=== PATIENT | female | born 1995 | race Caucasian/White ===

== ENCOUNTER 2018-03-25 16:48 | Emergency (ER) | payer OTHER ==
[2018-03-25] MEDS ORDERED: Tetracaine HCl/PF 0.5% 4 ML Bottle EYELF ONE (18:40)
--- NOTE | 2018-03-25 18:46 | EDM.PDOC ---
ED HPI GENERAL MEDICAL PROBLEM - General Chief Complaint: Eye Problems Stated Complaint: PAIN IN LEFT EYE Time Seen by Provider: 03/25/18 18:30 Source of Information: Reports: Patient, RN History Limitations: Reports: No Limitations - History of Present Illness INITIAL COMMENTS - FREE TEXT/NARRATIVE: 23 yo female presents with about 20 hrs of L eye irritation, redness, and watering. Says her tetanus is UTD. 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) Left Eye Pain Score (Numeric/FACES): 4 - Related Data Allergies Allergy/AdvReac Type Severity Reaction Status Date / Time No Known Allergies Allergy Verified 03/25/18 17:26 Home Meds: Home Meds NK [No Known Home Meds] 03/25/18 [History] Past Medical History - Past Health History Medical/Surgical History: Denies Medical/Surgical History Social & Family History - Tobacco Use Smoking Status *Q: Current Every Day Smoker Years of Tobacco use: 6 Packs/Tins Daily: 0.5 - Recreational Drug Use Recreational Drug Use: No ED ROS GENERAL - Review of Systems Review Of Systems: See Below Constitutional: Reports: No Symptoms HEENT: Reports: Eye Pain (left) Respiratory: Reports: No Symptoms GI/Abdominal: Reports: No Symptoms Skin: Reports: No Symptoms Neurological: Reports: No Symptoms ED EXAM GENERAL W FULL EYE - Physical Exam Exam: See Below Exam Limited By: No Limitations General Appearance: Alert, WD/WN, No Apparent Distress Eye Exam: Left Eye: Conjunctival Injection, Foreign Body (Over cornea, ? rust ring), Bilateral Eye: PERRL Eyelids: Bilateral: Normal Appearance Conjunctiva & Sclera: Left: Injected Cornea Exam: Left: Foreign Body Extraocular Movements: Bilateral: Intact Pupils: Normal Accommodation Pupillary Size: Bilateral: 3 mm Anterior Chamber: Bilateral: Normal Appearance Ears: Hearing Grossly Normal Nose: Normal Inspection, Normal Mucosa, No Blood Throat/Mouth: Normal Voice, No Airway Compromise Head: Atraumatic, Normocephalic Neck: Normal Inspection Extremities: Normal Inspection Neurological: Alert, Oriented, CN II-XII Intact, Normal Cognition, No Motor/ Sensory Deficits Psychiatric: Normal Affect, Normal Mood Skin Exam: Warm, Dry, Intact, Normal Color ED EYE w/ Add Procedure - Eye Procedure Alcaine Drops Administered: Yes Eye FB Removal: Other (eye spud removal of rust ring L corneal surface.) Course - Vital Signs Last Recorded V/S: Last Vital Signs Temp 36.7 C 03/25/18 17:22 Pulse 87 03/25/18 17:22 Resp 16 03/25/18 17:22 BP 119/61 03/25/18 17:22 Pulse Ox 98 03/25/18 17:22 Departure - Departure Time of Disposition: 18:56 Disposition: Home, Self-Care 01 Condition: Good Clinical Impression: Corneal rust ring of left eye - Discharge Information Referrals: PCP,None [Primary Care Provider] -
== END 2018-03-25 19:07 | disposition home or self-care (01) ==
LOC: JP.ED 16:48
DX: T15.02XA Foreign body in cornea, left eye, initial encounter (principal); F17.210 Nicotine dependence, cigarettes, uncomplicated
CPT/HCPCS: 99283; A9270

== ENCOUNTER 2022-08-19 13:26 | Emergency (ER) | payer MEDICAID, OTHER ==
[2022-08-19] MEDS ORDERED: Bacitracin Oint 1 GM U/D Packet TOP ONE (15:42)
[2022-08-19] MEDS ORDERED: Lidocaine 1% 5 ML VIAL INJECT ONE (15:42)
== END 2022-08-19 16:43 | disposition home or self-care (01) ==
LOC: JP.ED 13:26
DX: S61.213A Laceration without foreign body of left middle finger without damage to nail, initial encounter (principal); Z87.891 Personal history of nicotine dependence; W26.8XXA Contact with other sharp object(s), not elsewhere classified, initial encounter
CPT/HCPCS: 12001; 99282